=== PATIENT | male | born 1995 | race Caucasian/White ===

== ENCOUNTER 2020-08-05 01:36 | Emergency (ER) | payer OTHER ==
[~2020-08-05] VITALS: Ht 180.3 cm; Wt 117.9 kg
[2020-08-05] MEDS ORDERED: DOXYCYCLINE 10100 MG PO (02:24)
[2020-08-05 02:32] VITALS: BP 147/95
== END 2020-08-05 02:35 | disposition home or self-care (01) ==
LOC: ER 01:36
DX: S61.215A Laceration without foreign body of left ring finger without damage to nail, initial encounter (principal); Z88.1 Allergy status to other antibiotic agents; W26.8XXA Contact with other sharp object(s), not elsewhere classified, initial encounter; Y93.89 Activity, other specified; Y92.89 Other specified places as the place of occurrence of the external cause; Y99.8 Other external cause status